=== PATIENT | male | born 1990 | race African-American/Black ===

== ENCOUNTER 2020-10-11 23:31 | Emergency (ER) | payer SELFPAY ==
--- NOTE | 2020-10-11 23:56 | EDM.PDOC ---
ED HPI GENERAL MEDICAL PROBLEM - General Chief Complaint: Chest Pain Stated Complaint: SOB CHEST PAIN Time Seen by Provider: 10/11/20 23:40 Source of Information: Reports: Patient History Limitations: Reports: No Limitations - History of Present Illness INITIAL COMMENTS - FREE TEXT/NARRATIVE: Mr. Perkins is a very pleasant 30-year-old gentleman who now presents the ED with right-sided chest pain after accidentally dropping a 185 pound barbell on his chest while working out around 15:00 this afternoon. He had immediate pain to the superior aspect of his right pectoralis muscle, and his mid sternum. The pain is made worse if he moves or lies down. He also reports a sort of cracking or crunching sound to his sternum when he moves. No associated dyspnea. The patient states that he took some ibuprofen this afternoon, with inadequate relief of pain. Here in the ED, the patient is found to be hemodynamically stable, afebrile, saturating 98% on room air. Prior to today, the patient denies having a recent fever, chills, sore throat, ear pain, nasal or sinus congestion, cough, dyspnea, chest pain, palpitations, nausea, vomiting, constipation, diarrhea, abdominal pain, urinary symptoms, recent weight gain or weight loss, recent bloody bowel movements or black bowel movements, recent joint aches, headaches, or rashes. The patient does not have a PCP. Chest Pain Score (Numeric/FACES): 6 - Related Data Allergies Allergy/AdvReac Type Severity Reaction Status Date / Time No Known Allergies Allergy Verified 10/11/20 23:35 Home Meds: Home Meds . 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 ED EXAM, GENERAL - Physical Exam Exam: See Below Exam Limited By: No Limitations General Appearance: Alert, WD/WN, No Apparent Distress Eye Exam: Bilateral Eye: EOMI, Normal Inspection Ears: Normal External Exam, Hearing Grossly Normal Nose: Normal Inspection Throat/Mouth: Normal Inspection, Normal Lips, Normal Voice, No Airway Compromise Head: Atraumatic, Normocephalic Neck: Normal Inspection, Full Range of Motion Respiratory/Chest: No Respiratory Distress, Lungs Clear, Normal Breath Sounds (bilateral), No Accessory Muscle Use, Other (Mild tenderness to the superior right pectoralis muscle. Greater tenderness to the mid sternum, although no crepitus noted.). No: Decreased Breath Sounds, Crackles, Rhonchi, Wheezing, Stridor, Prolonged Expiration Cardiovascular: Normal Peripheral Pulses, Regular Rate, Rhythm, No Edema, No Gallop, No JVD, No Murmur, No Rub Peripheral Pulses: 3+: Radial (L), Radial (R) GI/Abdominal: Normal Bowel Sounds, Soft, Non-Tender, No Organomegaly, No Distention, No Abnormal Bruit, No Mass Back Exam: Normal Inspection, Full Range of Motion, NT Extremities: Normal Inspection, Normal Range of Motion, No Pedal Edema, Normal Capillary Refill Neurological: Alert, Oriented, Normal Cognition, No Motor/Sensory Deficits Psychiatric: Normal Affect Skin Exam: Warm, Dry, Intact, Normal Color, No Rash Course - Vital Signs Last Recorded V/S: Last Vital Signs Temp 36.7 C 10/11/20 23:37 Pulse 85 10/11/20 23:37 Resp 18 10/11/20 23:37 BP 139/90 10/11/20 23:37 Pulse Ox 98 10/11/20 23:37 - Re-Assessments/Exams Free Text/Narrative Re-Assessment/Exam: 10/11/20 23:50 As above, the patient dropped a 185 pound barbell on his right chest this afternoon, and is complaining of pain to his upper right pectoralis muscle, as well as to his mid sternum, and notes a sort of cracking sound with certain movements. He is tender in that area, along with palpation or flexion of his right pectoralis muscle. A sternal fracture is possible, and for that we would need to obtain a CT scan, however, even if a sternal fracture were identified, it is unlikely that they are patient would require surgery, therefore I did not push the patient for it, and he agreed that we do not need one tonight. For tonight's purposes, the patient will be given a prescription for Purcell that he can obtain via [facility], and I will refer him to the clinic to follow-up if his pain persists; he could get an outpatient CT scan of the chest. Departure - Departure Time of Disposition: 23:52 Disposition: Home, Self-Care 01 Condition: Good Clinical Impression: Contusion, chest wall - Discharge Information *PRESCRIPTION DRUG MONITORING PROGRAM REVIEWED*: Not Applicable *COPY OF PRESCRIPTION DRUG MONITORING REPORT IN PATIENT CARMINE: Not Applicable Instructions: Contusion, [id number] Referrals: Ale Sol NP [Nurse Practitioner] - Forms: ED Department Discharge Additional Instructions: You were seen in the emergency room for anterior chest pain after dropping a 185 pound barbell onto your chest this afternoon. Based on your history and physical examination, you have most likely contused your anterior chest, although a sternal fracture is possible. A CT of your chest to evaluate for sternal fracture was offered, but declined. We recommend that you take [id number] ibuprofen, 3 tablets (600 mg) up to every 8 hours, with food, as needed for discomfort. A prescription for the opioid pain reliever Purcell has been provided to the [facility]. You may take 1 to 2 tablets of Purcell up to every 6 hours, as needed for pain not relieved by ibuprofen. If you take Purcell, do not drive or operate heavy machinery for 12 hours afterwards. Purcell may cause constipation, so consider taking a stool softener. If your symptoms persist, please follow-up with Ale Sol NP, or one of the other providers in the clinic, to establish a PCP. They can then order an outpatient CT of your chest. If any other problems, please do not hesitate to return to the ER. Sepsis Event Note (ED) - Evaluation Sepsis Screening Result: No Definite Risk - Focused Exam Vital Signs: Vital Signs Temp Pulse Resp BP Pulse Ox 10/11/20 23:37 36.7 C 85 18 139/90 98
== END 2020-10-12 00:03 | disposition home or self-care (01) ==
LOC: JD.ED 23:31
DX: S20.211A Contusion of right front wall of thorax, initial encounter (principal); X50.0XXA Overexertion from strenuous movement or load, initial encounter
CPT/HCPCS: 99283

== ENCOUNTER 2020-10-18 03:42 | Emergency (ER) | payer SELFPAY ==
--- NOTE | 2020-10-18 04:14 | EDM.PDOC ---
ED HPI GENERAL MEDICAL PROBLEM - General Chief Complaint: General Stated Complaint: SOB Time Seen by Provider: 10/18/20 03:58 Source of Information: Reports: Patient History Limitations: Reports: No Limitations - History of Present Illness INITIAL COMMENTS - FREE TEXT/NARRATIVE: Mr. Perkins is a very pleasant 30-year-old gentleman who now presents the ED with dyspnea, tingling of his hands, feet, and neck, diaphoresis, and lower extremity weakness, that developed around 03:15 this morning, while he was lying awake in bed. He states that he got up, walked around for little while, sat down for a while, took a hot shower, but his symptoms persisted, therefore he came to the ED for evaluation. He states that since their onset, his symptoms have improved somewhat, but not resolved. No prior similar symptoms. Here in the ED, the patient is found to be hemodynamically stable, afebrile, saturating 99% on room air. He appears to be in no acute distress. The patient was seen by me in this ED on 10/11/2020 after accidentally dropping a 185 pound barbell onto his chest while working out. He was found to have a chest contusion, but no other significant injury. He was prescribed [place], which he states he has not taken for the last couple of days. Otherwise, the patient denies having a recent fever, chills, sore throat, ear pain, nasal or sinus congestion, cough, dyspnea, palpitations, nausea, vomiting, constipation, diarrhea, abdominal pain, urinary symptoms, recent weight gain or weight loss, recent bloody bowel movements or black bowel movements, recent joint aches, headaches, or rashes. The patient does not have a PCP. - Related Data Allergies Allergy/AdvReac Type Severity Reaction Status Date / Time No Known Allergies Allergy Verified 10/18/20 03:57 Home Meds: Home Meds Acetaminophen/HYDROcodone [[place] 325-5 MG] 1 tab PO Q6H PRN 10/18/20 [History] Past Medical History - Past Surgical History Musculoskeletal Surgical History: Reports: ORIF (right tibia) Social & Family History - Tobacco Use Tobacco Use Status *Q: Never Tobacco User Second Hand Smoke Exposure: No - Caffeine Use Caffeine Use: Reports: None - Alcohol Use Alcohol Use History: Yes Alcohol Use Frequency: Socially - Recreational Drug Use Recreational Drug Use: Yes Drug Use in Last 12 Months: No Recreational Drug Type: Reports: Marijuana/Hashish (last smoked when 20 yrs old) - Living Situation & Occupation Living situation: Reports: Single, Other (2 roomates) 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 ED EXAM, GENERAL - Physical Exam Exam: See Below Exam Limited By: No Limitations General Appearance: Alert, WD/WN, No Apparent Distress Eye Exam: Bilateral Eye: EOMI, Normal Inspection Ears: Normal External Exam, Hearing Grossly Normal Nose: Normal Inspection Throat/Mouth: Normal Inspection, Normal Lips, Normal Voice, No Airway Compromise Head: Atraumatic, Normocephalic Neck: Normal Inspection, Full Range of Motion Respiratory/Chest: No Respiratory Distress, Lungs Clear, Normal Breath Sounds, No Accessory Muscle Use Cardiovascular: Normal Peripheral Pulses, Regular Rate, Rhythm, No Edema, No Gallop, No JVD, No Murmur, No Rub Peripheral Pulses: 3+: Radial (L), Radial (R) GI/Abdominal: Normal Bowel Sounds, Soft, Non-Tender, No Organomegaly, No Distention, No Abnormal Bruit, No Mass Back Exam: Normal Inspection, Full Range of Motion, NT Extremities: Normal Inspection, Normal Range of Motion, No Pedal Edema, Normal Capillary Refill Neurological: Alert, Oriented, Normal Cognition, No Motor/Sensory Deficits Psychiatric: Normal Affect Skin Exam: Warm, Dry, Intact, Normal Color, No Rash #1 Interpretation EKG Date: 10/18/20 Time: 04:13 Rhythm: NSR Rate (Beats/Min): 77 [place]: Normal P-Wave: Present QRS: Normal ST-T: Normal QT: Normal Comparison: NA - No Prior EKG Course - Vital Signs Last Recorded V/S: Last Vital Signs Temp 36.1 C 10/18/20 03:52 Pulse 89 10/18/20 03:52 Resp 20 10/18/20 03:52 BP 138/81 10/18/20 03:52 Pulse Ox 99 10/18/20 03:52 Orthostatic Blood Pressure [ 144/81 Standing] Orthostatic Blood Pressure [ 147/84 Sitting] Orthostatic Blood Pressure [ 142/79 Supine] - Orders/Labs/Meds Orders: Active Orders 24 hr Category Date Time Status EKG Documentation Completion [RC] STAT Care 10/18/20 04:07 Active Orthostatic Vital Signs [RC] STAT Care 10/18/20 04:08 Active Chest 2V [CR] Stat Exams 10/18/20 04:07 Taken BLOOD GAS ARTERIAL [BG] Stat Lab 10/18/20 04:55 Results Labs: Laboratory Tests 10/18/20 10/18/20 10/18/20 Range/Units 04:20 04:20 04:20 WBC 6.32 (4.23-9.07) K/mm3 RBC 6.25 H (4.63-6.08) M/mm3 Hgb 13.9 (13.7-17.5) gm/dl Hct 43.7 (40.1-51.0) % MCV 69.9 L (79.0-92.2) fl MCH 22.2 L (25.7-32.2) pg MCHC 31.8 L (32.2-35.5) g/dl RDW Std Deviation 42.9 (35.1-43.9) fL Plt Count 259 (163-337) K/mm3 MPV 10.5 (9.4-12.3) fl Neutrophils % (Manual) 65 H (40-60) % Band Neutrophils % 0 (0-10) % Lymphocytes % (Manual) 25 (20-40) % Atypical Lymphs % 0 % Monocytes % (Manual) 9 (2-10) % Eosinophils % (Manual) 1 (0.8-7.0) % Basophils % (Manual) 0 L (0.2-1.2) Platelet Estimate Adequate Anisocytosis 2+ moderate Microcytosis 2+ moderate RBC Morph Comment Normal D-Dimer, Quantitative 0.35 (0.19-0.50) mg/L Puncture Site ABG pH (7.35-7.45) ABG pCO2 (35.0-45.0) mmHg ABG pO2 (80.0-100.0) mmHg ABG HCO3 (22.0-26.0) meq/L ABG O2 Saturation (96.0-97.0) % ABG Base Excess (-2-2.0) Aroldo Test O2 Delivery Device FiO2 (21.00-100.00) % Sodium 141 (136-145) mEq/L Potassium 3.9 (3.5-5.1) mEq/L Chloride 104 (98-107) mEq/L Carbon Dioxide 31 (21-32) mEq/L Anion Gap 9.9 (5-15) BUN 15 (7-18) mg/dL Creatinine 1.4 H (0.7-1.3) mg/dL Est Cr Clr Drug Dosing 78.56 mL/min Estimated GFR (MDRD) > 60 (>60) mL/min BUN/Creatinine Ratio 10.7 L (14-18) Glucose 129 H (74-106) mg/dL Calcium 9.4 (8.5-10.1) mg/dL Magnesium 1.7 L (1.8-2.4) mg/dl Total Bilirubin 0.4 (0.2-1.0) mg/dL AST 18 (15-37) U/L ALT 30 (16-63) U/L Alkaline Phosphatase 56 (46-116) U/L Troponin I < 0.017 (0.00-0.056) ng/mL Total Protein 7.4 (6.4-8.2) g/dl Albumin 3.9 (3.4-5.0) g/dl Globulin 3.5 gm/dL Albumin/Globulin Ratio 1.1 (1-2) TSH 3rd Generation 4.224 H (0.358-3.74) uIU/mL 10/18/20 Range/Units 04:55 WBC (4.23-9.07) K/mm3 RBC (4.63-6.08) M/mm3 Hgb (13.7-17.5) gm/dl Hct (40.1-51.0) % MCV (79.0-92.2) fl MCH (25.7-32.2) pg MCHC (32.2-35.5) g/dl RDW Std Deviation (35.1-43.9) fL Plt Count (163-337) K/mm3 MPV (9.4-12.3) fl Neutrophils % (Manual) (40-60) % Band Neutrophils % (0-10) % Lymphocytes % (Manual) (20-40) % Atypical Lymphs % % Monocytes % (Manual) (2-10) % Eosinophils % (Manual) (0.8-7.0) % Basophils % (Manual) (0.2-1.2) Platelet Estimate Anisocytosis Microcytosis RBC Morph Comment D-Dimer, Quantitative (0.19-0.50) mg/L Puncture Site Rt radial ABG pH 7.40 (7.35-7.45) ABG pCO2 41.7 (35.0-45.0) mmHg ABG pO2 81.0 (80.0-100.0) mmHg ABG HCO3 25.4 (22.0-26.0) meq/L ABG O2 Saturation 96.8 (96.0-97.0) % ABG Base Excess 1.0 (-2-2.0) Aroldo Test Positive O2 Delivery Device Room air FiO2 21.00 (21.00-100.00) % Sodium (136-145) mEq/L Potassium (3.5-5.1) mEq/L Chloride (98-107) mEq/L Carbon Dioxide (21-32) mEq/L Anion Gap (5-15) BUN (7-18) mg/dL Creatinine (0.7-1.3) mg/dL Est Cr Clr Drug Dosing mL/min Estimated GFR (MDRD) (>60) mL/min BUN/Creatinine Ratio (14-18) Glucose (74-106) mg/dL Calcium (8.5-10.1) mg/dL Magnesium (1.8-2.4) mg/dl Total Bilirubin (0.2-1.0) mg/dL AST (15-37) U/L ALT (16-63) U/L Alkaline Phosphatase (46-116) U/L Troponin I (0.00-0.056) ng/mL Total Protein (6.4-8.2) g/dl Albumin (3.4-5.0) g/dl Globulin gm/dL Albumin/Globulin Ratio (1-2) TSH 3rd Generation (0.358-3.74) uIU/mL - Re-Assessments/Exams Free Text/Narrative Re-Assessment/Exam: 10/18/20 04:09 As above, the patient developed dyspnea, diaphoresis, tingling of his hands, feet, and neck, and lower extremity weakness around 03:15 this morning, while lying awake in bed. His symptoms have improved since then, but have not resolved. His physical exam is unremarkable. I have ordered a work-up that includes orthostatics, several blood tests, an ABG, a chest x-ray, and an ECG. 10/18/20 04:28 The patient is not orthostatic. 10/18/20 05:11 Two-view chest radiograph appears to be grossly normal. The cardiac silhouette is within normal limits. No pulmonary vascular congestion. No pleural effusions. No focal infiltrate. No pneumothorax. Formal read per the Radiologist pending. The patient's CBC is unremarkable. His CMP is remarkable for a Cr slightly elevated at 1.4, with a BUN normal at 15. He has mild hyperglycemia of 129, with the remainder of his CMP being unremarkable. His magnesium level is slightly depressed at 1.7. His TSH is mildly elevated at 4.224. His troponin is undetectably low. His D-dimer is within normal limits at 0.35. His ABG demonstrates a primary metabolic alkalosis with appropriately compensated respiratory acidosis. 10/18/20 05:18 Test results discussed with the patient. As above, today's work-up is grossly unremarkable, and does not explain the cause of his symptoms, however, I reassured him that it does not appear that anything terrible is happening. I will refer him to the clinic to establish a PCP, in the event that his symptoms do not resolve. Departure - Departure Time of Disposition: 05:19 Disposition: Home, Self-Care 01 Condition: Good Clinical Impression: Dyspnea, Tingling sensation, Lower extremity weakness, Diaphoresis - Discharge Information *PRESCRIPTION DRUG MONITORING PROGRAM REVIEWED*: Not Applicable *COPY OF PRESCRIPTION DRUG MONITORING REPORT IN PATIENT CARMINE: Not Applicable Referrals: PCP,None [Primary Care Provider] - Ale Sol NP [Nurse Practitioner] - Forms: ED Department Discharge Additional Instructions: You were seen in the emergency room after developing shortness of breath, sweatiness, tingling of your hands, feet, and neck, and lower extremity weakness. Work-up in the ER included positional blood pressure checks, several blood tests, an arterial blood gas, a chest x-ray, and an ECG. Your entire work-up was unremarkable, and does not explain the cause of your symptoms, however, it does not appear that anything terrible is happening. If your symptoms persist, we recommend that you follow-up with Ale Sol NP, or one of the other providers in the clinic, to establish a PCP, and for further evaluation. If any other problems, please do not hesitate to return to the ER. Sepsis Event Note (ED) - Evaluation Sepsis Screening Result: No Definite Risk - Focused Exam Vital Signs: Vital Signs Temp Pulse Resp BP Pulse Ox 10/18/20 03:52 36.1 C 89 20 138/81 99 - My Orders Last 24 Hours: My Active Orders 10/18/20 04:07 EKG Documentation Completion [RC] STAT Chest 2V [CR] Stat 10/18/20 04:08 Orthostatic Vital Signs [RC] STAT 10/18/20 04:55 BLOOD GAS ARTERIAL [BG] Stat - Assessment/Plan Last 24 Hours: My Active Orders 10/18/20 04:07 EKG Documentation Completion [RC] STAT Chest 2V [CR] Stat 10/18/20 04:08 Orthostatic Vital Signs [RC] STAT 10/18/20 04:55 BLOOD GAS ARTERIAL [BG] Stat
--- NOTE | 2020-10-18 09:28 | CR ---
Chest: 2 views of the chest were obtained. Comparison: No prior chest imaging is available. Heart size and mediastinum are normal. Lungs are clear with no acute parenchymal change. No acute osseous abnormality is appreciated. Impression: 1. Nothing acute is seen on 2 view chest x-ray. Diagnostic code #1
== END 2020-10-18 05:25 | disposition home or self-care (01) ==
LOC: JD.ED 03:42
DX: R06.02 Shortness of breath (principal); R53.1 Weakness; R61 Generalized hyperhidrosis; R20.2 Paresthesia of skin
CPT/HCPCS: 36415; 36600; 71046; 71046-26; 80053; 82803; 83735; 84443; 84484; 85007; 85027; 85379; 93005; 93010; 99283; 99285-25